=== PATIENT | female | born 1985 ===

== ENCOUNTER 2017-09-12 05:21 | Inpatient (IN) | payer MEDICAID, SELFPAY ==
[2017-09-12 06:04] VITALS: BMI 24.5
[2017-09-12] MEDS: Lactated Ringer's 1,000 ML IV ONE ×2 (06:30→07:30)
[2017-09-12] MEDS ORDERED: Oxytocin 30 UNIT 30 UNITS/500 ML BAG IV ONE (06:34)
[2017-09-12] MEDS ORDERED: Lactated Ringer's 1,000 ML IV ONE ×2 (06:34→13:24)
[2017-09-12] MEDS ORDERED: OXYTOCIN/0.9 % NS 20 UNIT/1,000 ML BAG IV SCH (06:45)
[2017-09-12 06:59] LABS: BASO # 0.2 K/uL (0.0-0.2); BASO % 1.6 % (0.0-2.0); EOS # 0.1 K/uL (0.0-0.7); EOS % 0.9 % (0.0-4.0); HEMOGLOBIN 8.2 g/dL (12.0-16.0); LYMPH # 2.3 K/uL (1.0-4.3); LYMPH % 23.6 % (20.0-40.0); MEAN CELL VOLUME 58.2 fl (81.0-99.0); MEAN CORPUSCULAR HGB CONC 30.9 g/dL (33.0-37.0); MEAN PLATELET VOLUME 9.2 fl (7.2-11.7); MONO # 0.6 K/uL (0.0-0.8); MONO % 5.8 % (0.0-10.0); NEUT # 6.7 K/uL (1.8-7.0); NEUT % 68.1 % (50.0-75.0); NRBC % 0.1 % (0.0-0.0); RBC 4.57 Mil/uL (3.80-5.20); RED CELL DISTRIBUTION WIDTH 20.8 % (11.5-14.5); WHITE BLOOD COUNT 9.8 K/uL (4.8-10.8)
[2017-09-12] MEDS ORDERED: Morphine 5 mg/10 ml preservative-free Inj(Duramorph) ONE (07:21)
[2017-09-12] MEDS ORDERED: ceFAZolin IV 2 gm in Dextrose 2 GM/50 ML BAG IVPB ONE ×2 (07:57→07:59)
[2017-09-12] MEDS ORDERED: Oxycodone/Acetaminophen 5/325 mg Tab PO PRN ×3 (09:31→13:24)
[2017-09-13] MEDS: Oxycodone/Acetaminophen 5/325 mg Tab PO PRN ×2 (01:03→03:51)
[2017-09-13 06:30] LABS: HEMOGLOBIN 7.5 g/dL (12.0-16.0); MEAN CELL VOLUME 58.3 fl (81.0-99.0); MEAN CORPUSCULAR HEMOGLOBIN 17.6 pg (27.0-31.0); MEAN CORPUSCULAR HGB CONC 30.1 g/dL (33.0-37.0); RBC 4.26 Mil/uL (3.80-5.20); RED CELL DISTRIBUTION WIDTH 21.2 % (11.5-14.5)
[2017-09-13] MEDS: Multivitamin With Minerals Tab PO SCH (08:53)
[2017-09-13] MEDS ORDERED: Multivitamin With Minerals Tab PO SCH (09:00)
--- NOTE | 2017-09-13 11:45 | OBPPN ---
Datetime: 09/13/2017 11:39 PP Pain Prov: Within normal limits PP Nausea Prov: Denies PP Flatus Prov: Yes PP Breasts Prov: Normal PP Heart Prov: Normal PP Lungs Prov: Normal PP Abdomen/Uterus Prov: Normal PP Lochia Prov: Normal PP Vulva/Perineum Prov: Normal PP CVA Tenderness Prov: Normal PP Extremities Prov: Normal PP Impression Prov: Normal progression PP Progress Note Prov: Patient POD#1 after repeat csection --Patient doing well --Ambulation encouraged --Continue Percocet/Motrin for pain --Encouraged breast feeding --BP elevated, will continue to monitor as patient without a history of hypertension and received meds for pain this am. Pain could have been contributing to elevated BP.
--- NOTE | 2017-09-13 11:47 | OBADHP ---
Datetime: 09/12/2017 07:59 Admit Comment, IP Provider: Pt is a 32 y /o female with IUP 39.2 wks gestation (JOSE ALBERTO 09/17) here for scheduled repeat c section. Pt denies ctx, vb, lof. +FM PNC: Potter, GDM-diet controlled, Iron Def Anemia, Echogenic bowel of fetus on US. GBS negative. 3 rd trimester labs reviewed- Hg 9.5 OBHx: 1 prior c section, FT, breech Manager Forensic: Last pap 2011 wnl PMHX: none Meds: PNV, Iron Allergies: NKDA Social: Denies habits x3 Vitals: 145/89, HR 71, O2 sat 99 on rm air, Blood Glucose 77 General: NAD Cardiopulmonary exam wnl Abdomen: Gravid, NT Extr: No edema Labs: H/H (09/12): 8.2/26.6 FHR: 135, reactive, no decels (Category 1) A/P: IUP 39.2 wks here for repeat scheduled c section. PNC significant for GDM diet controlled, to day's BG 77. Anemia, today's Hg 8.7. FHR tracings wnl, occasional ctx on toco. Admit to L_D. Initiate cecesarian protocol. 2gm Anceph for preop ppx. Type and Cross. IV hydration. Discussed case with Dr. Ariane Martin, PGY2 Extremities - PN: Normal Abdomen - PN: Normal Back - PN: Not Done Breast - PN: Not Done Lungs - PN: Normal Heart - PN: Normal Thyroid - PN: Not Done Neurologic - PN: Not Done HEENT - PN: Normal General - PN: Normal FHR - Baseline A Provider: 135 Vital Signs Provider: Reviewed IP Chief Complaint: Scheduled Section NICHD Variability Prov Fetus A: Moderate 6-25bpm NICHD Accel Fetus A IP Provider: [id number] FHR Category Provider Fetus A: Category I NICHD Decel Fetus A IP Provider: None Genitourinary Exam: Not Done DTRs - PN: Not Done EGA AdmitDate IP: 39.2 IP Adm Impression: Term, intrauterine IP Admit Plan: Admit to unit; Initiate Section protocol
--- NOTE | 2017-09-14 04:35 | OP ---
Copied To: Verenice Romero MD Attending MD: Verenice Romero MD PROCEDURE DATE: 09/12/2017 PREOPERATIVE DIAGNOSES: Term with previous section and breech presentation, gestational diabetes mellitus type A2. POSTOPERATIVE DIAGNOSES: Term with previous section and breech presentation, gestational diabetes mellitus type A2, delivered. PROCEDURE: Repeat low transverse section. SURGEON: Verenice Romero MD LIPCOAT SPRAYER: Ryan Ayon MD ESTIMATED BLOOD LOSS: 1250 mL. URINE OUTPUT: 200 mL, clear at the end of procedure. INTRAVENOUS FLUIDS: 1700 mL lactated Ringer's. ANESTHESIA: Spinal. COMPLICATIONS: None. CLOSURE: Sam. PATHOLOGY: Placenta. FINDINGS: A live female, Apgars of 9 and 9, weight 3880 g, in maggie breech presentation, amniotic fluid clear. DESCRIPTION OF PROCEDURE: The patient was taken to the operating room and given spinal anesthesia without difficulty. She was then prepped and draped in the dorsal supine position with a leftward tilt. A Pfannenstiel skin incision was then made through the previous scar with a scalpel and carried to the underlying fascia with the Bovie. The fascia was incised in the midline. The incision was extended laterally using the Bovie. The inferior aspect of the fascial incision was then grasped with Sarahy clamps, elevated, and the underlying rectus muscles were dissected off with the Bovie, then bluntly. Attention was then turned to the superior aspect of the fascial incision which in a similar fashion was grasped with Sarahy clamps, elevated and the underlying rectus muscles were dissected off with the Bovie, then bluntly. The rectus muscles were meticulously in the midline. The peritoneum was identified, tented up, and entered with Metzenbaum scissors. This incision was then extended laterally, superiorly, and inferiorly paying close attention to the bladder. The bladder blade was re-inserted. The lower uterine segment was then identified and entered in a transverse fashion with the scalpel, and the membranes were ruptured. The infant was delivered in breech presentation atraumatically. The nose and mouth were suctioned on the abdomen. The cord was doubly clamped and cut. The infant was handed off to the awaiting lpn care manager. Cord blood was then taken. The placenta was extracted spontaneously and intact. The uterus was exteriorized and cleared of all clots and debris. The uterine incision was then closed with one Vicryl in a running locked fashion and two further [id number] sutures were then placed, and good hemostasis was noted. Copious irrigation was performed. The uterus was returned to the abdomen. The gutters were cleared of all clots. The rectus muscles and peritoneum were then reapproximated with 0 Vicryl in a running fashion, and good hemostasis was again noted. The fascia was reapproximated with 0 Vicryl bilaterally to the midline, and the skin was closed with sam and covered with a sterile dressing. The patient tolerated the procedure well. Sponge, lap, and needle counts were correct x4. Ancef 2 g was given preoperatively. The patient was taken to the recovery room in stable condition. There was no injury to the bladder, bowel, ureter, or baby. Due to the nature of the case, an endodontic assistant was requested. My endodontic assistant, Dr. Ayon, was present for the entire procedure from the initial incision to the patient's transfer to the recovery room. He assisted with entry into the abdominopelvic cavity, delivery of the baby, and closure of all layers of the abdominal wall and uterus and provided good exposure to decrease blood loss. His assistance was essential to perform this procedure. Verenice Romero MD
[2017-09-14 06:21] LABS: BASO # 0.1 K/uL (0.0-0.2); BASO % 0.9 % (0.0-2.0); EOS # 0.2 K/uL (0.0-0.7); EOS % 1.4 % (0.0-4.0); LYMPH % 14.2 % (20.0-40.0); MEAN CELL VOLUME 57.8 fl (81.0-99.0); MEAN CORPUSCULAR HEMOGLOBIN 17.7 pg (27.0-31.0); MEAN CORPUSCULAR HGB CONC 30.7 g/dL (33.0-37.0); MEAN PLATELET VOLUME 8.9 fl (7.2-11.7); MONO # 0.8 K/uL (0.0-0.8); MONO % 5.3 % (0.0-10.0); NEUT # 11.1 K/uL (1.8-7.0); NEUT % 78.2 % (50.0-75.0); RBC 3.97 Mil/uL (3.80-5.20); RED CELL DISTRIBUTION WIDTH 21.3 % (11.5-14.5); WHITE BLOOD COUNT 14.1 K/uL (4.8-10.8)
[2017-09-14] MEDS: Multivitamin With Minerals Tab PO SCH (08:15)
--- NOTE | 2017-09-14 13:03 | OBPPN ---
Datetime: 09/14/2017 06:43 PP Pain Prov: Within normal limits PP Progress Prov: Normal PP Plan Prov: Continue present management PP Progress Note Prov: 32 y/o s/p c section on 09/12/17 for repeat C-sec, today seen and exa mined on her POD2. No overnight events. Pt reports mild abdominal pain controlled with medication. Omar mckeon is able to get OOB and ambulate w/o dizziness, voiding well with no difficulties or hematuria n oted by patient, passing gas per rectum, but has not had BM yet. She denies dizziness, lightheadednes s, palpitation, LUCERO, blurry vision, upper abdominal pain, chest pain, SOB. without diffi culty. Lochia is like menses in volume. Pt is tolerating regular diet. O: CBC on 09/13/17 H/H 7.5/24.8 VS: WNL review today BP @ 12AM 132/80 HR 68, @3:30AM 123/70 HR 67 GEN: NAD Cardio: S1 S2 present, no murmurs noted Lungs: CTA bilateral Abdomen: BS+, Pfannenstiel incision is present well approximated, closed with clean margins, no er ythema or discharge. Uterus is firm and at the level of umbilicus. EXT: No edema, Manuel's negative NEURO/PSYCH: AAOx3, no grossly focal deficits, preserved affect and mood. Assessment 32 y/o female s/p c section on 09/12/17 for repeat C-sec seen and evaluated post op day 2, Patient has hx of anemia with hb 7.5 Post-op, but patient is asymptomatic. Patient was noted with el evated BP yesterday (POD1), today BP is WNL. Plan: -Continue to monitor VS -Monitor for preeclampsia symptoms -Monitor for Anemia symptoms -Ibuprofen 600 mg PO Q6h prn pain- mild -Percocet 1 to 2 tabs PO Q4h PRN pain moderate/ severe -Senokot 1 PO QHS prn constipation -Regular diet -Encourage ambulation -D/C planning Alfonzo Rodríguez MD PGY1 Patient seen and evaluated by me this am. Agree with the above note. BP better controlled today. P atient with anemia, will start Iron and Colace daily. --Dr. Romero Vital Signs Provider PP: Reviewed; Within Normal Limits Vital Signs Provider Details PP: BP on 09/14/17 ranging WNL Datetime: 09/13/2017 17:15 PP Nausea Prov: Denies PP Flatus Prov: Yes PP BM Prov: No PP Breasts Prov: Not Done PP Heart Prov: Normal PP Lungs Prov: Normal PP Abdomen/Uterus Prov: Normal PP Lochia Prov: Normal PP Vulva/Perineum Prov: Not Done PP CVA Tenderness Prov: Not Done PP Extremities Prov: Normal PP C/S Incision Prov: Normal PP Impression Prov: Normal progression; Induced Hypertension
[2017-09-15] MEDS: Multivitamin With Minerals Tab PO SCH (08:50)
--- NOTE | 2017-09-15 12:03 | OBPPN ---
Datetime: 09/15/2017 06:17 PP Pain Prov: Within normal limits PP Nausea Prov: Denies PP BM Prov: Yes PP Impression Prov: Normal progression PP Plan Prov: Continue present management; Discharge PP Progress Note Prov: 32 y/o s/p c section on 09/12/17 for repeat C-sec, today seen and exa mined on her POD3. No overnight events. Pt reports mild abdominal pain controlled with medication and she states that the pain is decreasing compared to previous days. Patient is able to get OOB and amb ulate w/o dizziness, voiding well with no difficulties, patient reports she had a BM already. She den ies dizziness, lightheadedness, palpitation, LUCERO, blurry vision, upper abdominal pain, chest pain, SOB . without difficulty. Lochia is less than menses in volume. Pt is tolerating regular di et. VS: reviewed today GEN: NAD Cardio: S1 S2 present, no murmurs noted Lungs: CTA bilateral Abdomen: BS+, Pfannenstiel incision is present well approximated, closed with clean margins, no er ythema or discharge. Uterus is firm below umbilicus. EXT: No edema, Manuel's negative NEURO/PSYCH: AAOx3, no grossly focal deficits, preserved affect and mood. Assessment 32 y/o female s/p c section on 09/12/17 for repeat C-sec seen and evaluated today POD3, Omar beckjayshree has anemia, but is asymptomatic. Patient is doing well and stable to be D/C home today. Plan: -Continue to monitor VS -Monitor for Anemia symptoms -Start Ferrous sulfate 325mg=65mg elemental iron 1 tab PO BID -Ibuprofen 600 mg PO Q6h prn pain- mild -Percocet 1 tabs PO Q6h PRN pain moderate/ severe -Senokot 1 PO QHS prn constipation -Regular diet -Encourage ambulation and -D/C today and f/u within a week for wound check and in 4 weeks f/u. Note: 18 surgical carmen were removed, patient tolerated removal of surgical carmen without any difficulties, surgical incision well aproximated, clean and with no discharge noted. Alfonzo Rodríguez MD PGY1 She was seen with the resident I agree with the note Vital Signs Provider PP: Reviewed; Within Normal Limits
--- NOTE | 2017-09-15 12:03 | OBDCSUM ---
Datetime: 09/15/2017 06:21 Discharged to, Provider: Home Follow up at, Provider: [facility] Disch Instr Activity: Normal activity Disch Instr Diet: Regular Discharge Instructions, Provider: Routine instructions given Discharge Diagnosis, Provider: Term Delivered Discharge Time: 09/15/2017 10:00 Follow up in weeks, Provider: 1 week Disch Referrals: None Contraception discussed, Prov: Yes Disch Activity Restrictions: No lifting; Minimize stair-climbing Discharge Comment, Provider: 32 y/o s/p C section, delivered a baby girl on 09/12/17 at 8:55 @ 39.2 weeks, Wt 3880 gms, 9/9. The patient is doing well, and stable for D/C on POD3, patient r eports only mild pelvic pain that gets relief with oral medication, patient is tolerating oral food, voiding w/o difficulties, had BM already, lochia is less than menses, she is afebrile, is getting OOB and ambulating w/o difficulties, denies palpitations, dizziness, CP, SOB, N/V/D, calf pain. Physical EXam: GEN: NAD CV: RRR,No murmurs noted RESP: CTA bilateral ABD: Soft, incision well aproximated, closed, no erythema or discharge seen, Uterus firm below umb ilicus level LE: No edema, Manuel's negative D/C Instructions: -Discharge today -Ferrous sulfate 325 1 tab PO BID -Encourage -Ibuprofen 600 mg PO 1 tab PO Q6h for pain PRN. -Percocet 1 tab PO Q6h PRN pain/moderate to severe -Ambulate w/caution, no heavy lifting, if new symptoms of pain or bleeding or fever are present go to ED. - F/U with your PMD in 1 week for wound check and visit in 4 to 6 weeks. Alfonzo Rodríguez MD PGY1 The patient was seen with the resident I agree with the note Contraception after Delivery: Undecided
[2017-09-15 16:42] VITALS: BP 104/70; PULSE 80; RESP 20; TEMP 98; O2SAT 98
== END 2017-09-15 12:10 | disposition home or self-care (01) | DRG 766 ==
LOC: H.EROB2 05:21 → H.L&D 06:34 → H.OB/GYN 13:00
PROVIDERS: ADMIT Obstetrics & Gynecology; ATTEND Obstetrics & Gynecology
PROC: 10D00Z1 Extraction of Products of Conception, Low, Open Approach (ICD-10-PCS; principal; 2017-09-12)
PROC: 4A1HXCZ Monitoring of Products of Conception, Cardiac Rate, External Approach (ICD-10-PCS; 2017-09-12)
DX: O34.211 Maternal care for low transverse scar from previous cesarean delivery (principal); Z37.0 Single live birth; N85.8 Other specified noninflammatory disorders of uterus; Z3A.39 39 weeks gestation of pregnancy; O32.1XX0 Maternal care for breech presentation, not applicable or unspecified; O99.02 Anemia complicating childbirth; O24.420 Gestational diabetes mellitus in childbirth, diet controlled